=== PATIENT | female | born 1960 | race Caucasian/White ===

== ENCOUNTER 2021-02-15 21:38 | Emergency (ER) | payer OTHER ==
[~2021-02-15] VITALS: Ht 167.6 cm; Wt 97.1 kg
[2021-02-15 21:48] VITALS: BP 148/88
[2021-02-15] MEDS ORDERED: KETOROLAC 60 MG/2 ML VIAL IM ONE ×2 (22:00→23:08)
[2021-02-15] MEDS ORDERED: IBUP-2213 PO (23:10)
[2021-02-15] MEDS ORDERED: ACET-8386 PO (23:10)
[2021-02-15 23:27] VITALS: BP 148/88
== END 2021-02-15 23:27 | disposition home or self-care (01) ==
LOC: MED 21:38
DX: S93.491A Sprain of other ligament of right ankle, initial encounter (principal); M25.551 Pain in right hip; Z90.49 Acquired absence of other specified parts of digestive tract; W11.XXXA Fall on and from ladder, initial encounter; Y93.89 Activity, other specified; Y92.89 Other specified places as the place of occurrence of the external cause; Y99.8 Other external cause status
CPT/HCPCS: 73502; 73610; 96372; 99284; J1885